=== PATIENT | female | born 1960 | race Caucasian/White ===

== ENCOUNTER 2016-08-20 10:14 | Emergency (ER) ==
[2016-08-20] MEDS ORDERED: DILAUDID IM ONE (11:03)
[2016-08-20] MEDS ORDERED: PHENERGAN IM ONE (11:04)
--- NOTE | 2016-08-20 11:08 | PROVIDER DOCUMENTATION ---
HPI-Abdominal Pain/GI Problem - General Chief Complaint: Abdominal Pain Stated Complaint: LOWER ABD PAIN Time Seen by Provider: 08/20/16 10:24 Source: patient Allergies/Adverse Reactions: Patient Allergies Allergy/AdvReac Type Severity Reaction Status Date / Time Sulfa (Sulfonamide Allergy Intermediate FATIGUE Verified 08/20/16 10:33 Antibiotics) [Sulfa(Sulfonamide Antibiotics)] ketorolac tromethamine * Allergy Mild ITCHING Verified 08/20/16 10:33 [From Toradol] aspirin AdvReac Mild NAUSEA Verified 08/20/16 10:33 Home Medications: Home Medication List Medication Instructions Recorded Confirmed Last Taken Type Clonazepam [Klonopin] 1 mg PO HS 12/04/15 08/20/16 08/19/16 History Losartan Potassium [Cozaar] 100 mg PO DAILY 02/04/16 08/20/16 08/20/16 History Carisoprodol [Soma] 350 mg PO QHS 08/20/16 08/20/16 08/19/16 History Hydrocodone/Acetaminophen [[place] 1 each PO Q4-6H PRN PRN 08/20/16 08/20/1608/19 History 10-325 Tablet] Hydrocodone/Acetaminophen [[place] 1 each PO Q4-6H PRN PRN #20 tablet 08/20/16 Unknown Rx 5-325 Tablet] - History of Present Illness-ABD Nature of Presenting Problems: patient is a 56 y/o F that presents to the ER with lower abdominal pain x 24 hours. Denies n/v/d. She also complain of generalized pain. She is in between pain clinics. Abdominal Pain Onset Location: reports: suprapubic, generalized abdomen Pain Radiation: reports: LLQ Quality of Pain: reports: aching Severity in ED: reports: mild Onset/Duration: reports: gradual, 24 hours ago Timing: reports: still present, constant Activities at Onset: reports: other (out of chronic pain meds) Exposure to sick contacts?: No Modifying Factors: improves with: nothing Associated Symptoms: reports: back/neck pain. denies: chest pain, diarrhea, dizziness, fever/chills, genitourinary problems, nausea, vomiting Similar Symptoms Previously?: Yes Recently seen or treated by another doctor?: No Review of Systems - Adult - REVIEW OF SYSTEMS - ADULT Constitutional: denies: chills, fever Eyes: reports: no symptoms reported Ears, Nose, Mouth & Throat: denies: ear pain, sinus problem, throat pain, throat swelling Cardiovascular: denies: chest pain, palpitations, syncope Respiratory: denies: cough, shortness of breath, wheezing Gastrointestinal: reports: abdominal pain. denies: diarrhea, nausea, vomiting Genitourinary: denies: dysuria, frequency, hematuria, urinary retention Musculoskeletal: reports: back pain. denies: joint pain, neck pain Integumentary: reports: no symptoms reported Neurological: reports: no symptoms reported Psychiatric: reports: no symptoms reported Endocrine: reports: no symptoms reported Hematologic/Lymphatic: reports: no symptoms reported Allergic/Immunologic: reports: no symptoms reported All Other Systems: Reviewed and Negative Past History - Adult - PAST MEDICAL HISTORY-ADULT Review of Records: reports: Old Records Reviewed, Nursing Assessment Review, Medications Reviewed Cardiovascular: reports: CHF, HTN, hyperlipidemia Musculoskeletal: reports: arthritis Psychiatric: reports: anxiety Endocrine/Immune: reports: Diabetes - PRIOR SURGERIES/PROCEDURES Surgical/Procedure History: reports: cholecystectomy, hysterectomy, BTL, orthopedic (extremity) (left leg), back/neck (prior back surg for disc herniation) - PRIOR HOSPITALIZATIONS Prior Hospitalizations: reports: for other non-related - IMMUNIZATION STATUS Childhood Immunizations: See Nurse Assessment Flu Vaccine: See Nurse Assessment - FAMILY HISTORY Family History: reviewed, not pertinent - SOCIAL HISTORY Smoking: quit greater than 1 year Living Situation: family Physical Exam-General - PHYSICAL EXAM-ADULT Initial Vital Signs Reviewed: Yes - CONSTITUTIONAL General Appearance: alert, no apparent distress - EYES Eyes: PERRL/EOMI, pink conjunctivae - HEAD, EARS, NOSE, MOUTH & THROAT HENMT: normocephalic/atraumatic, moist mucous membranes, normal ENT inspection - NECK Neck: non-tender, full range of motion, normal inspection - RESPIRATORY Respiratory: lungs clear, normal breath sounds, no respiratory distress, no accessory muscle use - CARDIOVASCULAR Cardiovascular: regular rate, rhythm, no gallop, no murmur - GASTROINTESTINAL (ABDOMEN) Abdominal Exam: normal bowel sounds, soft, no organomegaly, no pulsatile mass, tenderness (LLQ) - MUSCULOSKELETAL Back Exam: no CVA tenderness, no vertebral tenderness. negative: vertebral tenderness Extremity: normal range of motion, normal inspection, no pedal edema, no calf tenderness, normal capillary refill - SKIN Integumentary: normal color, warm/dry - NEUROLOGIC Neurologic: grossly normal, no motor/sensory deficits - PSYCHIATRIC Psych/Mental Status: normal mood/affect, normal thought content, normal thought process, oriented x 3 Progress - PLAN OF CARE/RESULTS Progress/Plan/Lab Results: plan of care-labs, meds Vital Signs Temp Pulse Resp BP Pulse Ox 08/20/16 10:19 97.6 F 85 20 180/91 100 Sulfa (Sulfonamide Antibiotics) [Sulfa(Sulfonamide Antibiotics)] Allergy ( Intermediate, Verified 08/20/16 10:33) FATIGUE ketorolac tromethamine * [From Toradol] Allergy (Mild, Verified 08/20/16 10:33) ITCHING aspirin Adverse Reaction (Mild, Verified 08/20/16 10:33) NAUSEA Clonazepam [Klonopin] 1 mg PO HS 12/04/15 Losartan Potassium [Cozaar] 100 mg PO DAILY 02/04/16 Carisoprodol [Soma] 350 mg PO QHS 08/20/16 Hydrocodone/Acetaminophen [[place] 10-325 Tablet] 1 each PO Q4-6H PRN PRN Hydrocodone/Acetaminophen [[place] 5-325 Tablet] 1 each PO Q4-6H PRN PRN #20 tablet 08/20/16 I&O 08/19/16 08/20/16 08/21/16 06:59 06:59 06:59 Output Total 20 Balance -20 Laboratory 08/20/16 08/20/16 11:17 11:17 WBC 8.62 RBC 4.48 Hgb 13.5 Hct 40.8 MCV 91.1 MCH 30.1 MCHC 33.1 RDW Std Deviation 12.9 Plt Count 397 MPV 9.4 Immature Gran % (Auto) 0.0 Neut % (Auto) 51.5 Lymph % (Auto) 38.2 [place] % (Auto) 7.1 Eos % (Auto) 2.7 Baso % (Auto) 0.5 Immature Gran # (Auto) 0.00 Neut # (Auto) 4.45 Lymph # (Auto) 3.29 [place] # (Auto) 0.61 H Eos # (Auto) 0.23 Baso # (Auto) 0.04 Urine Source CLEAN CATCH Urine Color YELLOW Urine Turbidity CLEAR Urine pH 6.0 Ur Specific [place] 1.018 Urine Protein NEGATIVE Ur Glucose (Stick) NEGATIVE Ur Ketones (Stick) NEGATIVE Urine Blood NEGATIVE Urine Nitrite NEGATIVE Urine Bilirubin NEGATIVE Urobilinogen Dipstick NORMAL Urine Leukocytes NEGATIVE Urine WBC (Auto) <10 Urine RBC (Auto) <10 U Epithel Cells (Auto) <10 Urine Bacteria (Auto) NEGATIVE Orders Category Date Time Status BMP [BASIC METABOLIC PANEL] [CHEM] Stat Lab 08/20/16 11:17 Received CBC WITH ELECTRONIC DIFF [HEME] Stat Lab 08/20/16 11:17 Completed URINALYSIS W/POSS RFLX CULT [URINALYSIS] Stat Lab 08/20/16 11:17 Completed Hydromorphone [Dilaudid] Med 08/20/16 11:03 Discontinued 2 mg IM NOW ONE Promethazine [Phenergan] Med 08/20/16 11:04 Discontinued 12.5 mg IM NOW ONE pt will be d/c home with rx, f/u with pcp, pt was clinically stable Departure - Departure Time of Disposition Order: 11:51 DIAGNOSIS: Back pain Qualifiers: Back pain location: low back pain Chronicity: chronic Back pain laterality: midline Sciatica presence: without sciatica Qualified Code(s): M54.5 - Low back pain; G89.29 - Other chronic pain Disposition: HOME 01 Certified Medical Emergency: Emergent Condition: Stable Additional Instructions: ED Follow Up Instructions: You have been treated by a care provider in the Emergency Department. These instructions are being provided to you so you can have an understanding of how to care for yourself upon discharge. Upon discharge from the Emergency Department, you are responsible for making arrangements for follow-up care by a physician of your choice. Take all prescribed medications as directed. Return to the Emergency Department immediately for any new or worsening symptoms. You may call the Physician Referral phone number at [phone] to obtain a list of Physicians who are taking new patients. Prescriptions: Hydrocodone/Acetaminophen [[place] 5-325 Tablet] 1 each PO Q4-6H PRN PRN #20 tablet PRN Reason: Pain Referrals: Shanae Villa MD [Primary Care Provider] - Call for Appoint. 1-2days Instructions: Back Exercises, Back Pain, Adult Attestation - Scribe Verification/Attestation Scribe:: Higinio Crane Acting as Scribe for:: Jeramie Moraes Scribe documention review:: This chart was documented by a scribe and accurately reflects the service the provider performed and the decisions made by the provider. Physician Attestation - Physician Attestation I, the provider, attest to the following statement:: Jeramie Moraes Physician documentation Attestation:: This documentation recorded by the scribe accurately reflects the service I personally performed and the decisions made by me.
[2016-08-20 11:28] LABS: MANUAL DIFF NEEDED? NO
[2016-08-20 11:34] LABS: BASO% 0.5 % (0.0-0.8); EOS# 0.23 X1000 (0.0-0.7); EOS% 2.7 % (0.0-10.0); HEMATOCRIT 40.8 % (37.0-47.0); HEMOGLOBIN 13.5 g/dL (12.0-16.0); LYMPH# 3.29 X1000 (1.2-3.4); LYMPH% 38.2 % (20.5-51.1); MCH 30.1 PG (27-31); MCHC 33.1 g/dL (33-37); MCV 91.1 FL (81-99); MONO# 0.61 X1000 (0.11-0.59); MONO% 7.1 % (1.7-9.3); MPV 9.4 FL (7.4-10.4); NEUT% 51.5 % (42.2-75.2); PLT 397 X1000 (130-400); RBC 4.48 XMIL (4.2-5.4)
[2016-08-20 11:37] LABS: URINE CULTURE NEEDED? NO; URINE MICRO REVIEW NEEDED? NO; URINE SOURCE CLEAN CATCH
[2016-08-20 11:41] LABS: UR EPITHELIAL CELLS <10 /HPF (<10); URINE BACTERIA NEGATIVE /HPF; URINE RBC <10 /HPF (<10); URINE WBC <10 /HPF (<10)
[2016-08-20 11:42] LABS: BILIRUBIN URINE NEGATIVE (NEGATIVE); BLOOD URINE NEGATIVE (NEGATIVE); COLOR YELLOW; GLUCOSE URINE NEGATIVE (NEGATIVE); LEUKOCYTES URINE NEGATIVE (NEGATIVE); NITRITE URINE NEGATIVE (NEGATIVE); PROTEIN URINE NEGATIVE (NEGATIVE); SP GRAVITY URINE 1.018; TURBIDITY URINE CLEAR (CLEAR); UROBILINOGEN URINE NORMAL (NORMAL)
[2016-08-20 12:05] VITALS: BP 152/78
[2016-08-20 12:16] LABS: AGAP 16; BUN 12 mg/dL (8-22); CALCIUM 9.2 mg/dL (8.8-10.2); CHLORIDE 99 mmol/L (98-107); COSMO 280; POTASSIUM 3.5 mmol/L (3.5-5.1); SODIUM 140 mmol/L (136-145); TCO2 25 mmol/L (25-35)
== END 2016-08-20 12:30 | disposition home or self-care (01) ==
LOC: ED 10:14
DX: M54.5 Low back pain (principal); G89.29 Other chronic pain; R10.32 Left lower quadrant pain; R10.84 Generalized abdominal pain; R10.9 Unspecified abdominal pain; R10.814 Left lower quadrant abdominal tenderness; I10 Essential (primary) hypertension; E78.5 Hyperlipidemia, unspecified; M19.90 Unspecified osteoarthritis, unspecified site; E11.9 Type 2 diabetes mellitus without complications; F41.9 Anxiety disorder, unspecified; Z79.899 Other long term (current) drug therapy; Z87.891 Personal history of nicotine dependence
CPT/HCPCS: 80048; 81001; 85025; J1170; J2550

== ENCOUNTER 2016-08-31 12:49 | Inpatient (IN) ==
--- NOTE | 2016-08-31 13:15 | ED EKG INTERP ---
EKG Interpretation - EKG Time of EKG reading by physician:: 12:51 EKG Read and Signed by:: Amaury Ly EKG Interpretation (*Must complete 3 of following elements*): Normal Rate: 81 Rhythm: normal sinus rhythm Comments: normal ECG Attestation - Scribe Verification/Attestation Scribe:: Charis Kilgore Acting as Scribe for:: Amaury Ly Scribe documention review:: This chart was documented by a scribe and accurately reflects the service the provider performed and the decisions made by the provider.
--- NOTE | 2016-08-31 15:37 | PROVIDER DOCUMENTATION ---
HPI-General Adult - General Chief Complaint: B/P Problems Stated Complaint: HIGH B/P Time Seen by Provider: 08/31/16 15:29 Source: patient, family Allergies/Adverse Reactions: Patient Allergies Allergy/AdvReac Type Severity Reaction Status Date / Time Sulfa (Sulfonamide Allergy Intermediate FATIGUE Verified 08/31/16 16:05 Antibiotics) [Sulfa(Sulfonamide Antibiotics)] ketorolac tromethamine * Allergy Mild ITCHING Verified 08/31/16 16:05 [From Toradol] aspirin AdvReac Mild NAUSEA Verified 08/31/16 16:05 Home Medications: Home Medication List Medication Instructions Recorded Confirmed Last Taken Type Clonazepam [Klonopin] 1 mg PO HS 12/04/15 08/31/16 08/31/16 History Losartan Potassium [Cozaar] 100 mg PO DAILY 02/04/16 08/31/16 08/31/16 History Carisoprodol [Soma] 350 mg PO QHS 08/20/16 08/31/16 08/19/16 History Hydrocodone/Acetaminophen [[place] 1 each PO Q4-6H PRN PRN 08/20/16 08/31/1608/19 History 10-325 Tablet] Hydrocodone/Acetaminophen [[place] 1 each PO Q4-6H PRN PRN #20 tablet 08/20/16 Unknown Rx 5-325 Tablet] Metformin [Glucophage] 500 mg PO BID CC 08/31/16 08/31/16 08/31/16 History PRAVAstatin [Pravachol] 40 mg PO DAILY 08/31/16 08/31/16 08/31/16 History - History of Present Illness -Gen Adult Nature of Presenting Problems: REPORTS HEADACHE SINCE SATURDAY. LEFT ANTERIOR CHEST PAIN INTERMITTENTLY SINCE SATURDAY. ELEVATED BLOOD PRESSURE FOR [address] FUNK ON SATURDAY AND ADDED CLONIDINE 0.1MG P.O. DAILY. HAS HAD MEDICATIONS TODAY. REPORTS HISTORY OF PAIN CLINIC FOR CHRONIC BACK AND SHOULDER PAIN. "DR. FUNK IS TRYING TO GET ME IN ANOTHER PAIN CLINIC. I HAVEN'T BEEN ON [place] IN A COUPLE OF MONTHS." ALSO, "SOMETIMES MY SHOULDER HURTS WHEN MY BACK HURTS THEN MY CHEST HURTS." Location of Pain/Injury: reports: head (FRONTAL HEADACHE FOR 2 WEEKS.), chest ( LEFT ANTERIOR AND SUBSTERNAL CHEST PAIN INTERMITTENLTY SINCE SATURDAY.) Pain Radiation: reports: no radiation, chest Quality of Pain: reports: aching Onset/Duration: reports: 2 days ago Timing: reports: still present, intermittent Context/Activities at Onset: reports: none Modifying Factors: improves with: nothing Associated Symptoms: reports: denies symptoms Similar Symptoms Previously?: No Recently seen or treated by another doctor?: Yes (SAW DR. FUNK ON SATURDAY) Review of Systems - Adult - REVIEW OF SYSTEMS - ADULT Constitutional: reports: see HPI Eyes: reports: no symptoms reported Ears, Nose, Mouth & Throat: reports: no symptoms reported Cardiovascular: reports: see HPI, chest pain Respiratory: reports: no symptoms reported Gastrointestinal: reports: no symptoms reported Genitourinary: reports: no symptoms reported Musculoskeletal: reports: no symptoms reported Integumentary: reports: no symptoms reported Neurological: reports: see HPI, headache/migraines Endocrine: reports: no symptoms reported Hematologic/Lymphatic: reports: no symptoms reported Allergic/Immunologic: reports: no symptoms reported All Other Systems: Reviewed and Negative Past History - Adult - PAST MEDICAL HISTORY-ADULT Review of Records: reports: Nursing Assessment Review, Medications Reviewed, Social history reviewed & non-contributory. Major Childhood Illnesses: reports: denies history Cardiovascular: reports: denies history, HTN, hyperlipidemia Respiratory: reports: denies history Gastrointestinal: reports: denies history, GERD Musculoskeletal: reports: arthritis Neurological: reports: denies history Psychiatric: reports: anxiety Endocrine/Immune: reports: Diabetes Other Conditions: reports: denies history - PRIOR SURGERIES/PROCEDURES Surgical/Procedure History: reports: cholecystectomy, hysterectomy, BTL, orthopedic (extremity) (left leg), back/neck (prior back surg for disc herniation) - PRIOR HOSPITALIZATIONS Prior Hospitalizations: reports: for other non-related - IMMUNIZATION STATUS Childhood Immunizations: See Nurse Assessment Flu Vaccine: See Nurse Assessment - FAMILY HISTORY Family History: reviewed, not pertinent - SOCIAL HISTORY Smoking: denies Substance Use: none/never Living Situation: family Physical Exam-General - PHYSICAL EXAM-ADULT Initial Vital Signs Reviewed: Yes - CONSTITUTIONAL General Appearance: mild distress - EYES Eyes: PERRL/EOMI, pink conjunctivae - HEAD, EARS, NOSE, MOUTH & THROAT HENMT: normocephalic/atraumatic, moist mucous membranes, maxillary tenderness ( TURBINATES ERYTHEMATOUS, YELLOW DISCHARGE BILATERAL NARES) - NECK Neck: non-tender, full range of motion, supple - RESPIRATORY Respiratory: chest non-tender, lungs clear, normal breath sounds - CARDIOVASCULAR Cardiovascular: normal peripheral pulses, regular rate, rhythm, no edema - GASTROINTESTINAL (ABDOMEN) Abdominal Exam: normal bowel sounds, non tender, soft - LYMPHATIC Lymphatic: no adenopathy - MUSCULOSKELETAL Back Exam: normal inspection Extremity: normal range of motion Peripheral Pulses: radial (R): 3+, radial (L): 3+ - SKIN Integumentary: normal color, normal turgor, warm/dry - NEUROLOGIC Neurologic: grossly normal, no motor/sensory deficits - PSYCHIATRIC Psych/Mental Status: normal mood/affect, normal thought content, normal thought process, oriented x 3 Progress - PLAN OF CARE/RESULTS Progress/Plan/Lab Results: Vital Signs Temp Pulse Resp BP Pulse Ox 08/31/16 16:20 210/120 08/31/16 12:51 97.7 F 93 H 18 232/111 99 Sulfa (Sulfonamide Antibiotics) [Sulfa(Sulfonamide Antibiotics)] Allergy ( Intermediate, Verified 08/31/16 16:05) FATIGUE ketorolac tromethamine * [From Toradol] Allergy (Mild, Verified 08/31/16 16:05) ITCHING aspirin Adverse Reaction (Mild, Verified 08/31/16 16:05) NAUSEA Clonazepam [Klonopin] 1 mg PO HS 12/04/15 Losartan Potassium [Cozaar] 100 mg PO DAILY 02/04/16 Carisoprodol [Soma] 350 mg PO QHS 08/20/16 Hydrocodone/Acetaminophen [[place] 10-325 Tablet] 1 each PO Q4-6H PRN PRN Hydrocodone/Acetaminophen [[place] 5-325 Tablet] 1 each PO Q4-6H PRN PRN #20 tablet 08/20/16 Metformin [Glucophage] 500 mg PO BID CC 08/31/16 PRAVAstatin [Pravachol] 40 mg PO DAILY 08/31/16 I&O 08/30/16 08/31/16 09/01/16 06:59 06:59 06:59 Output Total 50 Balance -50 Laboratory 08/31/16 08/31/16 08/31/16 Unknown 13:00 13:00 WBC 9.44 RBC 4.31 Hgb 13.4 Hct 39.5 MCV 91.6 MCH 31.1 H MCHC 33.9 RDW Std Deviation 12.7 Plt Count 385 MPV 10.0 Immature Gran % (Auto) 0.0 Neut % (Auto) 54.3 Lymph % (Auto) 35.8 [place] % (Auto) 7.4 Eos % (Auto) 2.3 Baso % (Auto) 0.2 Immature Gran # (Auto) 0.00 Neut # (Auto) 5.12 Lymph # (Auto) 3.38 [place] # (Auto) 0.70 H Eos # (Auto) 0.22 Baso # (Auto) 0.02 PTT (Actin FS) Sodium 142 Potassium 3.5 Chloride 102 Carbon Dioxide 25 Anion Gap 15 BUN 13 Creatinine 1.0 H Estimated GFR/1.73 m2 58 BUN/Creatinine Ratio 13 Glucose 116 H Calculated Osmolality 284 Calcium 9.4 Total Bilirubin 0.27 AST 16 ALT 17 Alkaline Phosphatase 117 H Troponin T Total Protein 7.2 Albumin 4.4 Globulin 2.8 Albumin/Globulin Ratio 1.6 Urine Source CLEAN CATCH Urine Color YELLOW Urine Turbidity CLEAR Urine pH 5.5 Ur Specific [place] 1.017 Urine Protein NEGATIVE Ur Glucose (Stick) NEGATIVE Ur Ketones (Stick) NEGATIVE Urine Blood NEGATIVE Urine Nitrite NEGATIVE Urine Bilirubin NEGATIVE Urobilinogen Dipstick NORMAL Urine Leukocytes NEGATIVE Urine WBC (Auto) <10 Urine RBC (Auto) <10 U Epithel Cells (Auto) <10 Urine Bacteria (Auto) NEGATIVE 08/31/16 08/31/16 13:00 13:00 WBC RBC Hgb Hct MCV MCH MCHC RDW Std Deviation Plt Count MPV Immature Gran % (Auto) Neut % (Auto) Lymph % (Auto) [place] % (Auto) Eos % (Auto) Baso % (Auto) Immature Gran # (Auto) Neut # (Auto) Lymph # (Auto) [place] # (Auto) Eos # (Auto) Baso # (Auto) PTT (Actin FS) 27.1 Sodium Potassium Chloride Carbon Dioxide Anion Gap BUN Creatinine Estimated GFR/1.73 m2 BUN/Creatinine Ratio Glucose Calculated Osmolality Calcium Total Bilirubin AST ALT Alkaline Phosphatase Troponin T < 0.010 Total Protein Albumin Globulin Albumin/Globulin Ratio Urine Source Urine Color Urine Turbidity Urine pH Ur Specific [place] Urine Protein Ur Glucose (Stick) Ur Ketones (Stick) Urine Blood Urine Nitrite Urine Bilirubin Urobilinogen Dipstick Urine Leukocytes Urine WBC (Auto) Urine RBC (Auto) U Epithel Cells (Auto) Urine Bacteria (Auto) Laboratory Tests 08/31/16 08/31/16 08/31/16 13:00 13:00 13:00 WBC 9.44 RBC 4.31 Hgb 13.4 Hct 39.5 MCV 91.6 MCH 31.1 H MCHC 33.9 RDW Std Deviation 12.7 Plt Count 385 MPV 10.0 Immature Gran % (Auto) 0.0 Neut % (Auto) 54.3 Lymph % (Auto) 35.8 [place] % (Auto) 7.4 Eos % (Auto) 2.3 Baso % (Auto) 0.2 Immature Gran # (Auto) 0.00 Neut # (Auto) 5.12 Lymph # (Auto) 3.38 [place] # (Auto) 0.70 H Eos # (Auto) 0.22 Baso # (Auto) 0.02 PTT (Actin FS) 27.1 Sodium Potassium Chloride Carbon Dioxide Anion Gap BUN Creatinine Estimated GFR/1.73 m2 BUN/Creatinine Ratio Glucose Calculated Osmolality Calcium Total Bilirubin AST ALT Alkaline Phosphatase Troponin T < 0.010 Total Protein Albumin Globulin Albumin/Globulin Ratio Urine Source Urine Color Urine Turbidity Urine pH Ur Specific [place] Urine Protein Ur Glucose (Stick) Ur Ketones (Stick) Urine Blood Urine Nitrite Urine Bilirubin Urobilinogen Dipstick Urine Leukocytes Urine WBC (Auto) Urine RBC (Auto) U Epithel Cells (Auto) Urine Bacteria (Auto) 08/31/16 08/31/16 13:00 Unknown WBC RBC Hgb Hct MCV MCH MCHC RDW Std Deviation Plt Count MPV Immature Gran % (Auto) Neut % (Auto) Lymph % (Auto) [place] % (Auto) Eos % (Auto) Baso % (Auto) Immature Gran # (Auto) Neut # (Auto) Lymph # (Auto) [place] # (Auto) Eos # (Auto) Baso # (Auto) PTT (Actin FS) Sodium 142 Potassium 3.5 Chloride 102 Carbon Dioxide 25 Anion Gap 15 BUN 13 Creatinine 1.0 H Estimated GFR/1.73 m2 58 BUN/Creatinine Ratio 13 Glucose 116 H Calculated Osmolality 284 Calcium 9.4 Total Bilirubin 0.27 AST 16 ALT 17 Alkaline Phosphatase 117 H Troponin T Total Protein 7.2 Albumin 4.4 Globulin 2.8 Albumin/Globulin Ratio 1.6 Urine Source CLEAN CATCH Urine Color YELLOW Urine Turbidity CLEAR Urine pH 5.5 Ur Specific [place] 1.017 Urine Protein NEGATIVE Ur Glucose (Stick) NEGATIVE Ur Ketones (Stick) NEGATIVE Urine Blood NEGATIVE Urine Nitrite NEGATIVE Urine Bilirubin NEGATIVE Urobilinogen Dipstick NORMAL Urine Leukocytes NEGATIVE Urine WBC (Auto) <10 Urine RBC (Auto) <10 U Epithel Cells (Auto) <10 Urine Bacteria (Auto) NEGATIVE Orders Category Date Time Status Admit Patient To Observation Status Routine AdmDCTranf 08/31/16 17:06 Ordered Call Admitting on Arrival AT ADMISSION Care 08/31/16 17:09 Active Cardiac Monitoring DIRECTED Care 08/31/16 15:48 Active ED: Urine Bedside ORDERED Care 08/31/16 15:45 Active Monitor Blood Pressure ORDERED Care 08/31/16 15:48 Active Nursing [SLED Misc. NRSG Orders] DIRECTED Care 08/31/16 15:47 Active Saline Loc NOW Care 08/31/16 15:43 Active CHEST-1 VIEW [RAD] Stat Exams 08/31/16 15:42 Taken HEAD W/O CONTRAST [CT] Stat Exams 08/31/16 15:46 Completed CBC WITH ELECTRONIC DIFF [HEME] Stat Lab 08/31/16 13:00 Completed CMP [COMPREHENSIVE METABOLIC PANEL] [CHEM] Stat Lab 08/31/16 13:00 Completed PTT [COAG] Stat Lab 08/31/16 13:00 Completed TROPONIN T Stat Lab 08/31/16 13:00 Completed URINALYSIS W/POSS RFLX CULT [URINALYSIS] Stat Lab 08/31/16 Completed Aspirin Med 08/31/16 16:20 Discontinued 325 mg PO NOW ONE Clonidine [Catapres] Med 08/31/16 15:49 Discontinued 0.1 mg PO NOW ONE Morphine Med 08/31/16 16:26 Discontinued See Dose Instructions IV NOW ONE Ondansetron [Zofran] Med 08/31/16 16:48 Discontinued 4 mg .ROUTE .STK-MED ONE Ondansetron [Zofran] Med 08/31/16 16:47 Discontinued 4 mg IV NOW ONE Telemetry [OM.EQ] Routine Oth 08/31/16 17:09 Active pulse ox [Oximetry Spotcheck] Urgent Oth 08/31/16 15:48 Active Transfer/Admit Order [TRANSFER] Routine Transfer 08/31/16 17:09 Ordered DISCUSSED HISTORY, PRESENTATION AND FINDINGS WITH DR. TUCKER WHO AGREES WITH PLAN TO ADMIT. DISCUSSED HISTORY, PRESENTATION WITH DR. FUNK AND WILL ADMIT TO OBSERVATION. PATIENT AND FAMILY AGREE WITH PLAN OF CARE. NO HEADACHE AFTER MORPHINE IV AND CHEST PAIN HAS IMPROVED. NTG NOT GIVEN DUE TO HEADACHE--DR. FUNK AWARE. - XRAY 1 XRAY Study: Chest Impression: Normal - CT/MRI 1 CT Study: Head Impression: Normal Departure - Departure Time of Disposition Order: 17:12 DIAGNOSIS: Headache Qualifiers: Headache type: unspecified Headache chronicity pattern: acute headache Intractability: not intractable Qualified Code(s): R51 - Headache Hypertension Qualifiers: Hypertension type: essential hypertension Qualified Code(s): I10 - Essential ( primary) hypertension Sinusitis Qualifiers: Sinusitis location: maxillary Chronicity: acute Recurrence: not specified as recurrent Qualified Code(s): J01.00 - Acute maxillary sinusitis, unspecified Chest pain Qualifiers: Chest pain type: other chest pain Qualified Code(s): R07.89 - Other chest pain Disposition: ADMITTED INPATIENT 09 Certified Medical Emergency: Emergent Condition: Stable Referrals: Shanae Funk MD [Primary Care Provider] - Instructions: Migraine Headache, [id number]
[2016-08-31] MEDS ORDERED: CATAPRES PO ONE (15:49)
[2016-08-31 16:01] LABS: MANUAL DIFF NEEDED? NO
[2016-08-31 16:02] LABS: BASO% 0.2 % (0.0-0.8); EOS# 0.22 X1000 (0.0-0.7); EOS% 2.3 % (0.0-10.0); HEMATOCRIT 39.5 % (37.0-47.0); HEMOGLOBIN 13.4 g/dL (12.0-16.0); LYMPH# 3.38 X1000 (1.2-3.4); LYMPH% 35.8 % (20.5-51.1); MCH 31.1 PG (27-31); MCHC 33.9 g/dL (33-37); MCV 91.6 FL (81-99); MONO% 7.4 % (1.7-9.3); NEUT% 54.3 % (42.2-75.2); PLT 385 X1000 (130-400); RBC 4.31 XMIL (4.2-5.4)
[2016-08-31 16:06] LABS: URINE CULTURE NEEDED? NO; URINE MICRO REVIEW NEEDED? NO; URINE SOURCE CLEAN CATCH
[2016-08-31 16:11] LABS: BILIRUBIN URINE NEGATIVE (NEGATIVE); BLOOD URINE NEGATIVE (NEGATIVE); COLOR YELLOW; GLUCOSE URINE NEGATIVE (NEGATIVE); LEUKOCYTES URINE NEGATIVE (NEGATIVE); NITRITE URINE NEGATIVE (NEGATIVE); PH URINE 5.5; PROTEIN URINE NEGATIVE (NEGATIVE); SP GRAVITY URINE 1.017; TURBIDITY URINE CLEAR (CLEAR); UROBILINOGEN URINE NORMAL (NORMAL)
[2016-08-31 16:12] LABS: UR EPITHELIAL CELLS <10 /HPF (<10); URINE BACTERIA NEGATIVE /HPF; URINE RBC <10 /HPF (<10); URINE WBC <10 /HPF (<10)
[2016-08-31 16:18] LABS: ALBUMIN 4.4 g/dL (3.5-5.0); CALCIUM 9.4 mg/dL (8.8-10.2); POTASSIUM 3.5 mmol/L (3.5-5.1); TOTAL BILIRUBIN 0.27 mg/dL (0.20-1.00); TOTAL PROTEIN 7.2 g/dL (6.3-8.3)
[2016-08-31] MEDS ORDERED: ASPIRIN PO ONE (16:20)
[2016-08-31] MEDS ORDERED: MORPHINE IV ONE ×2 (16:26→17:17)
--- NOTE | 2016-08-31 16:30 | Diag Imaging Result Document ---
PROCEDURE NAME: HEAD W/O CONTRAST - 08/31/2016 CT OF THE HEAD WITHOUT CONTRAST: FINDINGS: There is no evidence of mass effect, bleed, or abnormal extra-axial fluid collection. There are lacunae present in both basal ganglia. There are no previous studies available for comparison. IMPRESSION: Chronic microvascular changes. No evidence of acute disease.
[2016-08-31] MEDS ORDERED: ZOFRAN IV ONE ×2 (16:47→17:18)
[2016-08-31] MEDS ORDERED: ZOFRAN ONE (16:48)
--- NOTE | 2016-08-31 16:59 | Diag Imaging Result Document ---
PROCEDURE NAME: CHEST-1 VIEW - 08/31/2016 PORTABLE CHEST: TIME: 1555 hours FINDINGS: The inspiration is suboptimal. There is a granuloma in the right costophrenic angle. There has been no significant change since 06/27/2016. IMPRESSION: Poor inspiration.
[2016-08-31] MEDS ORDERED: APRESOLINE IV PRN (19:28)
[2016-08-31] MEDS ORDERED: ASPIRIN PO STA (19:28)
--- NOTE | 2016-08-31 21:38 | HISTORY AND PHYSICAL ---
CHIEF COMPLAINT: Elevated blood pressure, headache, intermittent chest pain this afternoon. HISTORY OF PRESENT ILLNESS: She is a 56-year-old, white female, who was seen in the emergency room with the above symptoms. Patient was seen in my office on 08/29/2016 for uncontrolled blood pressure. She is noncompliant. Treatment was optimized and she failed to improve, came to the emergency room. In the ER chest x-ray was negative, head CT was negative, and EKG is unremarkable. She has been admitted to the hospital for rule out ND, control the blood pressure and currently stable. She denies any shortness of breath, PND, orthopnea or dizziness, nausea, vomiting, swelling of feet. PAST MEDICAL HISTORY: Chronic anxiety, hypertension, glucose intolerance, metabolic syndrome, chronic lower back pain. PAST SURGICAL HISTORY: Bilateral cataract surgery, cholecystectomy, hysterectomy, back surgery, lipoma of left leg excision. MEDICINES IN MY OFFICE: Klonopin 0.5 mg once daily, losartan 100 mg daily, metformin 500 mg 2 in the morning 1 in the evening, Norvasc 10 mg daily, trazodone 50 mg at bedtime. ALLERGIES: Not known. SOCIAL HISTORY: , 3 kids, living in [place]. No smoking. No alcohol. Disabled. FAMILY HISTORY: Father of COPD at the age of 50. Mother of heart attack at the age of 58. Brothers had CVA. HEALTH MAINTENANCE: She is not up-to-date on vaccinations. REVIEW OF SYSTEMS: HEENT: Headache. No vision problem. No earache. No sore throat. Neck: No goiter. No lymphadenopathy. No bruit. Cardiopulmonary: Chest pain, atypical. No shortness of breath, PND, orthopnea. GI: No nausea, vomiting, abdominal pain. : No history of hesitancy or frequency. No swelling of feet. No joint pains. Neurologic: No obvious focal symptoms or weakness or seizures. PHYSICAL EXAMINATION: VITAL SIGNS: On examination blood pressure is high. Height 5 feet 3 inches, 171 pounds. Slightly tachycardic. HEENT: Atraumatic, normocephalic. Pupils equal, reactive to light. No papilledema noted. TMs are normal. Nose and throat within normal limits. NECK: JVD is not elevated. CHEST: Bilateral air entry. HEART: Sounds are regular. No murmur. ABDOMEN: Belly is soft, obese, nontender. Good bowel sounds. No masses palpable. No peripheral edema, cyanosis or clubbing. NEUROLOGIC: No obvious focal deficits. INVESTIGATIONS: CBC: White cell count 9.4, hematocrit 39, platelets 385,000. SMA 7 is normal. Creatinine 1.0, glucose 116. Liver function tests normal. Urinalysis is clear. CT head chronic microvascular ischemic changes. No evidence of acute disease. Chest x-ray poor inspiration. No significant change from 06/27/2016. EKG normal sinus, nothing acute. ASSESSMENT AND PLAN: A 56-year-old, white female, admitted to the hospital with uncontrolled hypertension associated with headache and chest pain, history of noncompliance. 1. Chest pain. Rule out myocardial infarction. Serial cardiac enzymes. Get an echocardiography. 2. Type 2 diabetes. Check the A1c. Currently on metformin. 3. Deep vein thrombosis and gastrointestinal prophylaxis with Lovenox and Protonix. 4. Hypertension currently on Cozaar. We will also add Norvasc 10 mg once a day and hydralazine as needed. 5. Chronic anxiety. On Klonopin. 6. Chronic back pain. Taking Soma. 7. Once the blood pressure is controlled, we will also need a stress test to rule out ischemic heart disease in light of risk factors and family history. If not able to control the blood pressure, look for secondary causes. 8. We will follow up on the clinical course. cc: Josh Villa MD
[2016-08-31] MEDS: SOMA PO SCH (21:54)
[2016-08-31] MEDS: SODIUM CHLORIDE 0.9% INJ SCH (21:54)
[2016-08-31] MEDS: KLONOPIN PO SCH (21:54)
[2016-08-31] MEDS: PROTONIX IV SCH (21:55)
[2016-08-31] MEDS: LOVENOX SUBQ SCH (21:55)
[2016-08-31] MEDS: HUMULIN R SUBQ SCH (22:02)
[2016-09-01] MEDS: HUMULIN R SUBQ SCH ×3 (07:00→17:45)
[2016-09-01] MEDS: NORVASC PO SCH (09:35)
[2016-09-01] MEDS: PRAVACHOL PO SCH (09:35)
[2016-09-01] MEDS: COZAAR PO SCH (09:35)
[2016-09-01] MEDS: GLUCOPHAGE PO SCH ×2 (09:35→17:45)
[2016-09-01] MEDS: TYLENOL PO PRN (17:45)
[2016-09-01] MEDS ORDERED: TYLENOL ONE (17:46)
[2016-09-01 17:58] LABS: HEMATOCRIT 36.7 % (37.0-47.0); MCH 30.3 PG (27-31); MCHC 32.7 g/dL (33-37); MCV 92.7 FL (81-99); MPV 9.8 FL (7.4-10.4); RBC 3.96 XMIL (4.2-5.4)
[2016-09-01 18:42] LABS: AGAP 17; BUN 14 mg/dL (8-22); CHLORIDE 100 mmol/L (98-107); COSMO 282; POTASSIUM 3.6 mmol/L (3.5-5.1); SODIUM 141 mmol/L (136-145); TCO2 24 mmol/L (25-35)
--- NOTE | 2016-09-01 21:33 | EKG Report ---
Test Performed on : 09/01/2016 07:21:11 AM Test Reason : cp Blood Pressure : / mmHG Vent. Rate : 060 BPM Atrial Rate : 060 BPM P-R Int : 182 ms QRS Dur : 078 ms QT Int : 496 ms P-R-T Axes : 043 061 094 degrees QTc Int : 496 ms Normal sinus rhythm. Prolonged QT Abnormal ECG When compared with ECG of 31-AUG-2016 12:51, (Unconfirmed) QT has lengthened Confirmed by Renetta STEELE, Simon De Los Santos ([id number]) on 09/02/2016 12:55:01 PM
[2016-09-02] MEDS: KLONOPIN PO SCH ×2 (01:11→22:31)
[2016-09-02] MEDS: LOVENOX SUBQ SCH ×2 (01:11→22:31)
[2016-09-02] MEDS: PROTONIX IV SCH ×2 (01:11→22:31)
[2016-09-02] MEDS: SODIUM CHLORIDE 0.9% INJ SCH ×2 (01:11→22:31)
[2016-09-02] MEDS: HUMULIN R SUBQ SCH ×5 (01:13→22:31)
[2016-09-02] MEDS: SOMA PO SCH ×2 (01:17→22:31)
[2016-09-02] MEDS: TYLENOL PO PRN (01:19)
[2016-09-02] MEDS: GLUCOPHAGE PO SCH ×2 (08:59→18:14)
[2016-09-02] MEDS: PRAVACHOL PO SCH (08:59)
[2016-09-02] MEDS: NORVASC PO SCH (08:59)
[2016-09-02] MEDS: COZAAR PO SCH (08:59)
--- NOTE | 2016-09-02 14:36 | PROGRESS NOTE ---
DATE: 09/02/2016 SUBJECTIVE: No chest pain. Blood pressure is coming down. No headache and no shortness of breath, PND, orthopnea. REVIEW OF SYSTEMS: Normal. Past medical history, past surgical history, medicines are reviewed. EXAMINATION: Vital Signs: Stable, 97.5, blood pressure is 138/69, room air 98%. HEENT: Atraumatic, normocephalic. Pupils equal, react to light. TMs are normal. Nose and throat within normal limits. Neck: Supple. No lymphadenopathy. No goiter. Chest: Clear to auscultation. Heart: Sounds are regular, no murmur. Belly: Soft, nontender. Good bowel sounds. No masses palpable. Neurologic: Nonfocal. INVESTIGATIONS: CBC is normal. SMA 7 is normal. Creatinine 1.0. A1c 6.0. Cardiac enzymes are normal. Urinalysis is clear. ASSESSMENT AND PLAN: 1. Hypertension now he is well controlled on amlodipine 10 mg daily, losartan 100 mg daily. 2. Hyperlipidemia on pravastatin. 3. Deep vein thrombosis, gastrointestinal prophylaxis with Lovenox and Protonix respectively. 4. Chronic anxiety on Klonopin. 5. Chest pain. Baseline EKG is normal. Ruled out for serial cardiac enzymes for myocardial infarction. Waiting for an echocardiogram and a stress test. If results are normal he will be discharged and will follow up. cc: Josh Villa MD
[2016-09-02] MEDS: MIRALAX PO SCH (15:17)
[2016-09-02] MEDS: MUCINEX PO SCH ×2 (15:17→22:31)
[2016-09-03] MEDS: HUMULIN R SUBQ SCH ×3 (06:12→18:01)
[2016-09-03] MEDS ORDERED: LEXISCAN ONE (08:08)
[2016-09-03] MEDS: NORVASC PO SCH (09:55)
[2016-09-03] MEDS: PRAVACHOL PO SCH (09:55)
[2016-09-03] MEDS: COZAAR PO SCH (09:55)
[2016-09-03] MEDS: GLUCOPHAGE PO SCH ×2 (09:55→18:07)
[2016-09-03] MEDS: MUCINEX PO SCH (09:55)
[2016-09-03] MEDS: TYLENOL PO PRN (09:55)
[2016-09-03] MEDS: MIRALAX PO SCH (09:56)
--- NOTE | 2016-09-03 13:40 | Diag Imaging Result Document ---
PROCEDURE NAME: MYOCARDIAL PERF SCAN, STR/REST - 09/03/2016 INDICATIONS: Chest pain. PROCEDURES PERFORMED: 1. One-day stress rest myocardial perfusion imaging. 2. Lexiscan stress. PROCEDURE IN DETAIL: Ms. Elizalde was brought to the nuclear laboratory and had a resting study with injection of 12.9 mCi of technetium-99m sestamibi to usual imaging protocol utilized. Subsequently, she was brought back and had a Lexiscan stress. At peak stress, was injected with 35.8 mCi of technetium-99m sestamibi with the usual imaging protocol utilized. FINDINGS: LEXISCAN STRESS RESULTS: 1. Baseline EKG shows sinus rhythm. 2. No evidence of ischemic related EKG changes or significant arrhythmias occurred during the course of the study. PERFUSION IMAGING RESULTS: 1. No evidence of abnormal extracardiac uptake. 2. TID ratio is normal at 1. 3. Perfusion imaging shows normal homogeneous uptake of radiotracer throughout the myocardial segments. 4. Normal ejection fraction of 74%. End-diastolic volume of 59, end-systolic volume of 15. Normal wall motion. cc: MD Josh Lyles MD
[2016-09-03 17:32] VITALS: BP 139/77
--- NOTE | 2016-09-03 21:10 | DISCHARGE SUMMARY ---
ADMISSION DATE: 09/03/2016 DISCHARGE DATE: 09/03/2016 DISCHARGING DIAGNOSES: 1. Atypical chest pain. 2. Intractable headache due to hypertension. 3. Chronic anxiety. 4. Type 2 diabetes. 5. Metabolic syndrome. 6. Chronic insomnia. PROCEDURES: 1. Nuclear perfusion scan is negative for reversible defects. 2. Echocardiography results are pending. BRIEF HISTORY: Please see the H and P that was done on 08/31/2016. In brief, she is a 56-year-old, white female, who came to the emergency room with chest pain, elevated blood pressure, headache. Blood pressure was 200 x 100. Prior to the admission, ER workup was negative. CT head was negative. Chest x-ray was stable. HOSPITAL COURSE: 1. Chest pain: Patient was ruled out for CT by serial cardiac enzymes. EKG is unremarkable. Once the blood pressure was under control patient had a stress test done and Dr. Elizalde reported no evidence of reversible defects. 2. Type 2 diabetes. Well controlled on metformin. 3. Hypertension. Optimize treatment by Cozaar and Norvasc. 4. Chronic anxiety on Klonopin. 5. Chronic back pain. Discontinue Soma. We will use only Flexeril as needed. 6. At the time of discharge blood pressure is controlled. LABORATORIES: CBC: White cell count 7.8, hematocrit 36, platelets 330,000, SMA 7, sodium 140, potassium 3.6, chloride 100, BUN 14, creatinine 1.0, glucose 104, A1c 6.0, calcium 9.0, AST and ALT normal. CK was normal. Cardiac enzymes were normal. Urinalysis is clear. RADIOLOGY: Myocardial perfusion scan is negative for reversible ischemia. CT head is negative. Chest x-ray was stable. DISCHARGE INSTRUCTIONS: 1. Aspirin 81 mg daily. 2. Klonopin 0.5 mg at bedtime. 3. Cozaar 100 daily. 4. Metformin 500 p.o. b.i.d. 5. Pravachol 40 daily. 6. Flexeril 10 daily. 7. Amlodipine 10 daily. 8. Follow up maintenance care for hypertension, diabetes, hyperlipidemia in my office in 2 weeks. cc: MD Josh Lyles MD
--- NOTE | 2016-09-04 07:12 | ECHO REPORT ---
ORDER DATE: 09/01/2016 INTERPRETING PHYSICIAN: Dr. Silva REQUESTING PHYSICIAN: Dr. Villa CLINICAL INDICATIONS: Chest pain. M-MODE MEASUREMENTS: Right ventricle: 2.6 cm. Left ventricle end diastole: 4.4 cm. Left ventricle end systole: 2.7 cm. Posterior wall: 1.0 cm. Interventricular septum: 1.0 cm. Left atrium: 3.7 cm. Aortic root: 2.5 cm. SUMMARY OF 2-DIMENSIONAL IMAGIN. The left ventricular chamber is not dilated. Left ventricular systolic function is normal. Ejection fraction is estimated at 57%. No wall motion abnormality is noted. 2. Right ventricle appears to be normal. 3. The atria appear to be normal. 4. The aortic valve is normal. Color flow mapping is unremarkable. 5. The mitral valve looks normal. Color flow mapping is unremarkable. 6. Tricuspid valve looks normal. Color flow mapping indicates trace regurgitation. 7. The inferior vena cava is not dilated. 8. The pulmonic valve looks normal. Color flow mapping indicates mild degree of regurgitation. 9. The mitral valve shows normal opening of the leaflets. Color flow mapping is unremarkable. 10.Pulse wave Doppler of mitral inflow is normal. 11.Tissue Doppler of septal and lateral mitral annulus is normal. 12.There is no diastolic dysfunction. 13.There is no pulmonary hypertension. 14.Tricuspid valve is unremarkable. 15.Aortic valve is also unremarkable. CONCLUSIONS: 1. Normal left and right ventricular function. 2. No diastolic dysfunction. 3. No pulmonary hypertension. 4. Normal valvular structures. Clinical correlation is recommended. cc: MD Josh Alexander MD
--- NOTE | 2016-09-05 05:51 | EKG Report ---
Test Performed on : 08/31/2016 12:51:19 PM Test Reason : No ORder in [facility] Blood Pressure : / mmHG Vent. Rate : 081 BPM Atrial Rate : 081 BPM P-R Int : 164 ms QRS Dur : 082 ms QT Int : 378 ms P-R-T Axes : 058 065 084 degrees QTc Int : 439 ms Normal sinus rhythm. Normal ECG When compared with ECG of 27-JUN-2016 19:27, No significant change was found Unconfirmed Result
== END 2016-09-03 19:14 | disposition home or self-care (01) ==
LOC: ED 12:49 → 3N 17:57
PROVIDERS: ADMIT Internal Medicine; ATTEND Internal Medicine

== ENCOUNTER 2017-01-12 10:38 | Observation (INO) ==
--- NOTE | 2017-01-12 11:27 | PROVIDER DOCUMENTATION ---
HPI-Chest Pain - General Chief Complaint: Cold Symptoms Stated Complaint: FEVER Time Seen by Provider: 01/12/17 11:07 Source: patient Allergies/Adverse Reactions: Patient Allergies Allergy/AdvReac Type Severity Reaction Status Date / Time Sulfa (Sulfonamide Allergy Intermediate FATIGUE Verified 01/12/17 10:59 Antibiotics) [Sulfa(Sulfonamide Antibiotics)] ketorolac tromethamine * Allergy Mild ITCHING Verified 01/12/17 10:59 [From Toradol] aspirin AdvReac Mild NAUSEA Verified 01/12/17 10:59 Home Medications: Home Medication List Medication Instructions Recorded Confirmed Last Taken Type Losartan Potassium [Cozaar] 100 mg PO QAM 02/04/16 01/12/17 01/12/17 History Amlodipine [Norvasc] 10 mg PO DAILY #30 tablet 09/03/16 01/12/17 01/12/17 Rx Metoprolol [Lopressor] 25 mg PO QAM 10/10/16 01/12/17 01/12/17 History Clonazepam 0.5 mg PO DAILY 10/13/16 01/12/17 01/12/17 History Ibuprofen [Motrin] 400 mg PO Q6H PRN PRN #20 tablet 12/11/16 01/12/17 01/12/17 Rx Trazodone [Desyrel] 100 mg PO QHS 12/11/16 01/12/17 1 Day Ago History Omeprazole [Omeprazole] 40 mg PO QAM 01/12/17 01/12/17 01/12/17 History Metformin [Glucophage] 500 mg PO BID CC #60 tablet 01/13/17 Unknown Rx PRAVAstatin [Pravachol] 40 mg PO QHS #30 tablet 01/13/17 Unknown Rx - History of Present Illness-CP Nature of Presenting Problem: Pt is a 56 y/o F c chief complaint chest pain and shortness of breath x 3-5 days. Pt has a h/o c htn, hld. Pt describes her chest as aching in nature and made worse on deep inspiration. On arrival, pt is in moderate distress. Review of Systems - Adult - REVIEW OF SYSTEMS - ADULT Constitutional: reports: no symptoms reported. denies: chills, fatique Eyes: reports: no symptoms reported. denies: blurred vision, double vision Ears, Nose, Mouth & Throat: reports: no symptoms reported. denies: ear pain, nose pain, throat pain Cardiovascular: reports: see HPI, chest pain Respiratory: reports: see HPI, shortness of breath Gastrointestinal: reports: no symptoms reported. denies: abdominal pain, nausea Genitourinary: reports: no symptoms reported. denies: dysuria, frequent UTI's, hematuria Musculoskeletal: reports: no symptoms reported. denies: joint pain, joint swelling Integumentary: reports: no symptoms reported. denies: itching, rash Neurological: reports: no symptoms reported. denies: numbness, paresthesia Psychiatric: reports: no symptoms reported. denies: anxiety, emotional problems Endocrine: reports: no symptoms reported. denies: cold intolerance, heat intolerance Hematologic/Lymphatic: reports: no symptoms reported. denies: blood clots, low blood count Allergic/Immunologic: reports: no symptoms reported. denies: allergic reactions , frequent infections All Other Systems: Reviewed and Negative Past History - Adult - PAST MEDICAL HISTORY-ADULT Review of Records: reports: Old Records Reviewed, Nursing Assessment Review, Medications Reviewed, Social history reviewed & non-contributory. Major Childhood Illnesses: reports: denies history Cardiovascular: reports: HTN, hyperlipidemia. denies: blood clots Respiratory: reports: denies history Gastrointestinal: reports: denies history, GERD Obstetrical/Gynecological: reports: denies history Genitourinary: reports: denies history Musculoskeletal: reports: arthritis Neurological: reports: denies history Psychiatric: reports: anxiety Endocrine/Immune: reports: Diabetes Other Conditions: reports: denies history - PRIOR SURGERIES/PROCEDURES Surgical/Procedure History: reports: cholecystectomy, hysterectomy, BTL, orthopedic (extremity) (left leg), back/neck (prior back surg for disc herniation) - PRIOR HOSPITALIZATIONS Prior Hospitalizations: reports: for other non-related - IMMUNIZATION STATUS Childhood Immunizations: See Nurse Assessment Flu Vaccine: See Nurse Assessment - FAMILY HISTORY Family History: reviewed, not pertinent Physical Exam-General - PHYSICAL EXAM-ADULT Initial Vital Signs Reviewed: Yes - CONSTITUTIONAL General Appearance: alert, no apparent distress - EYES Eyes: PERRL/EOMI, pink conjunctivae - HEAD, EARS, NOSE, MOUTH & THROAT HENMT: normocephalic/atraumatic, moist mucous membranes, normal ENT inspection - NECK Neck: normal inspection - RESPIRATORY Respiratory: chest non-tender, lungs clear, normal breath sounds - CARDIOVASCULAR Cardiovascular: normal peripheral pulses, regular rate, rhythm - GASTROINTESTINAL (ABDOMEN) Abdominal Exam: normal bowel sounds, non tender, soft - LYMPHATIC Lymphatic: no adenopathy - MUSCULOSKELETAL Back Exam: normal inspection, no CVA tenderness, no vertebral tenderness Extremity: normal range of motion, non-tender, normal inspection - SKIN Integumentary: normal color, normal turgor, warm/dry - NEUROLOGIC Neurologic: grossly normal, no motor/sensory deficits - PSYCHIATRIC Psych/Mental Status: normal mood/affect, normal thought content, normal thought process, oriented x 3 Progress - PLAN OF CARE/RESULTS Progress/Plan/Lab Results: Orders Category Date Time Status Admit - [facility] Routine AdmDCTranf 01/12/17 16:23 Ordered Activity - Bed Rest with BRP ORDERED Care 01/12/17 16:22 Active Call Admitting on Arrival AT ADMISSION Care 01/12/17 16:23 Active Resuscitation Status Routine Care 01/12/17 16:22 Ordered Saline Loc NOW Care 01/12/17 13:06 Active Vital Signs Order ROUTINE Care 01/12/17 16:22 Active Z-Document. for Tele Applied ORDERED Care 01/12/17 16:23 Completed NPO Diet 01/13/17 00:01 Completed CHEST-2 VIEWS [RAD] Stat Exams 01/12/17 11:[address] ABD/PELVIS/PULM ARTERIES [CT] Stat Exams 01/12/17 12:59 Completed AMYLASE [CHEM] Stat Lab 01/12/17 11:45 Completed CBC WITH ELECTRONIC DIFF [HEME] Stat Lab 01/12/17 11:45 Completed CK PROFILE [SP CHEM] Stat Lab 01/12/17 11:45 Completed CK PROFILE [SP CHEM] Stat Lab 01/12/17 14:16 Completed COMPREHENSIVE METABOLIC PANEL [CHEM] Stat Lab 01/12/17 11:45 Completed Ddimer [D-DIMER] [CHEM] Stat Lab 01/12/17 11:45 Completed Flu Swab [INFLUENZA SCREEN A/B] Stat Lab 01/12/17 10:55 Completed LIPASE [CHEM] Stat Lab 01/12/17 11:45 Completed TROPONIN T Stat Lab 01/12/17 11:45 Completed TROPONIN T Stat Lab 01/12/17 14:16 Completed 0.9% Sodium Chloride Inj [Ns] 1,000 ml Med 01/12/17 16:22 Discontinued IV KVO Aspirin Med 01/12/17 11:29 Discontinued 325 mg PO NOW ONE Lido/Lubin Alk/Al&mg Hydrox [G.i. Cocktail] Med 01/12/17 13:07 Discontinued 30 ml PO NOW ONE Morphine Med 01/12/17 16:22 Discontinued 2 mg IV Q2H PRN PRN Morphine Med 01/12/17 16:00 Discontinued 4 mg IV NOW ONE Nitroglycerin Med 01/12/17 13:07 Discontinued 0.5 inch TOP NOW ONE Ondansetron [Zofran] Med 01/12/17 13:07 Discontinued 4 mg IV NOW ONE Ondansetron [Zofran] Med 01/12/17 16:22 Discontinued 4 mg IV Q4H PRN PRN Telemetry [OM.EQ] Routine Oth 01/12/17 16:22 Active EKG [EKG] Stat Ther 01/12/17 11:34 Draft EKG [EKG] Stat Ther 01/12/17 13:49 Draft Venous U/S Bilateral Legs Stat Ther 01/12/17 13:11 Draft Transfer/Admit Order [TRANSFER] Routine Transfer 01/12/17 16:24 Completed Result Diagrams: 01/12/17 11:45 01/12/17 11:45 - REASSESSMENT Reassessment #1 Time Reassessed: 16:20 (Discussed c Dr. Villa (PCP) who would like to admit pt to floor c tele for r/o cp. He will write floor orders. ) - CT/MRI 1 CT Study: Angiogram (pulmonary) Impression: Normal CT Results: negative - Radiology 2 CT Study: Abdomen, Pelvis Impression: Normal CT Results: negative - radiology - CONSULTS/PCP/HOSPITALIST Notification #1 *Consult/PCP/Hospitalist*: Dr. Villa (PCP) Time Discussed: 16:21 (Admit floor c tele) Departure - Departure Date of Disposition Decision: 01/12/17 Time of Disposition Decision: 16:20 DIAGNOSIS: Chest pain Qualifiers: Chest pain type: unspecified Qualified Code(s): R07.9 - Chest pain, unspecified Disposition: ADMITTED INPATIENT 09 Certified Medical Emergency: Emergent Condition: Stable - Critical Care Note This patient required my direct & personal management of CC.: No Attestation - Physician/ SHONDA Attestation Patient care was provided by Advanced Practice Provider:: Yes Advanced Practice Provider:: Antonio Frausto Advanced Practice Provider documentation review:: The Mid-level provider documentation, treatment plan and medical decision making was reviewed by the physician who agrees with all treatment and medical decision making by the MLP. The physician spent face to face time with patient:: No Advanced Practice Provider documentation review:: Supervising physician onsite and consulted in the evaluation and care of this patient. The physician did not have a face to face encounter with the patient.
[2017-01-12] MEDS ORDERED: ASPIRIN PO ONE (11:29)
--- NOTE | 2017-01-12 11:37 | Diag Imaging Result Doc PS360 ---
EXAM: CHEST-2 VIEWS HISTORY: COUGH, TACHYCARDIA TECHNIQUE: PA and lateral chest COMMENT: There is a calcified granuloma in the right costophrenic angle anteriorly. There is no evidence of acute cardiac or pulmonary disease and compared to 10/10/2016 there has been no significant change. IMPRESSION: No acute disease. Electronically signed by Buddy Collier 01/12/2017 11:34 AM
[2017-01-12 11:58] LABS: MANUAL DIFF NEEDED? NO
[2017-01-12 12:05] LABS: BASO% 0.2 % (0.0-0.8); EOS# 0.09 X1000 (0.0-0.7); EOS% 1.4 % (0.0-10.0); HEMATOCRIT 37.7 % (37.0-47.0); HEMOGLOBIN 12.8 g/dL (12.0-16.0); LYMPH# 1.61 X1000 (1.2-3.4); LYMPH% 24.2 % (20.5-51.1); MCH 30.3 PG (27-31); MCV 89.1 FL (81-99); MONO# 0.47 X1000 (0.11-0.59); MONO% 7.1 % (1.7-9.3); MPV 9.9 FL (7.4-10.4); NEUT% 67.1 % (42.2-75.2); PLT 324 X1000 (130-400); RBC 4.23 XMIL (4.2-5.4)
[2017-01-12 12:48] LABS: ALBUMIN 3.8 g/dL (3.5-5.0); CALCIUM 8.1 mg/dL (8.8-10.2); POTASSIUM 3.1 mmol/L (3.5-5.1); TOTAL BILIRUBIN 0.4 mg/dL (0.20-1.00); TOTAL PROTEIN 6.7 g/dL (6.3-8.3)
[2017-01-12] MEDS ORDERED: G.I. COCKTAIL PO ONE (13:07)
[2017-01-12] MEDS ORDERED: NITROGLYCERIN TOP ONE (13:07)
[2017-01-12] MEDS ORDERED: ZOFRAN IV ONE (13:07)
[2017-01-12 13:21] LABS: AMYLASE 40 U/L (20-200); LIPASE 27 U/L (13-60)
--- NOTE | 2017-01-12 14:09 | Diag Imaging Result Doc PS360 ---
EXAM: ABD/PELVIS/PULM ARTERIES HISTORY: COUGH, CP, SOB X 24 HRS. ELEVATED D-DIMER TECHNIQUE: CT of the chest with intravenous contrast and 3-D MIPS, pulmonary arteriogram protocol with reduced dose applied. COMMENT: There are no filling defects in the pulmonary arteries. The aorta is normal in caliber. There is no evidence of dissection. There are no abnormal fluid collections. There is a calcified granuloma in the right lower lobe and calcified nodes in the subcarina. No evidence of acute pulmonary disease is present. There are mild spondylotic changes in the thoracic spine. ABDOMEN: The aorta is partially calcified but normal in caliber. The mesenteric and renal arteries are patent. There is no evidence of significant adenopathy. There is been previous cholecystectomy. The spleen and adrenal glands are not enlarged. The pancreas is normal in appearance. There is lobulation of both kidneys some of which may be due to previous cortical scarring. The liver is slightly hypodense suggesting fatty change. There is no evidence of bowel obstruction. Pelvis: There has been previous appendectomy. There is some diverticulosis in the sigmoid colon without evidence of active diverticulitis. There is no evidence of free fluid. There is been previous hysterectomy. The regional skeleton is intact. IMPRESSION: 1. No evidence of pulmonary emboli. 2. Hepatic steatosis. 3. Diverticulosis coli. Electronically signed by Buddy Collier 01/12/2017 2:06 PM
[2017-01-12] MEDS ORDERED: MORPHINE IV ONE (16:00)
[2017-01-12] MEDS ORDERED: NS 1,000 ML IV ONE (16:22)
[2017-01-12] MEDS ORDERED: MORPHINE IV PRN (16:22)
[2017-01-12] MEDS ORDERED: ZOFRAN IV PRN (16:22)
[2017-01-12] MEDS ORDERED: MOTRIN PO PRN (18:16)
[2017-01-12] MEDS ORDERED: DESYREL PO SCH (21:00)
[2017-01-13 04:34] VITALS: BP 95/45
[2017-01-13 06:58] LABS: HEMOGLOBIN A1C 6.4 % (4.8-6.0)
[2017-01-13] MEDS ORDERED: PRILOSEC PO SCH (07:00)
[2017-01-13] MEDS ORDERED: KLONOPIN PO SCH (09:00)
[2017-01-13] MEDS ORDERED: LOPRESSOR PO SCH (09:00)
[2017-01-13] MEDS ORDERED: NORVASC PO SCH (09:00)
[2017-01-13] MEDS ORDERED: COZAAR PO SCH (09:00)
--- NOTE | 2017-01-13 13:01 | HISTORY AND PHYSICAL ---
CHIEF COMPLAINTS: Chest pain, URI symptoms. HISTORY OF PRESENT ILLNESS: She is a 56-year-old, white female who was seen in our office in September for elevated blood pressure and tachycardia, sent home on beta blockers. She showed up in the ER with above symptoms. Patient was seen by PA who called me. All the workup was negative. Wants to be admitted for rule out ND even though previous stress test was negative in September. Pain is reproducible. No other symptoms. Basically admitted for observation. PAST MEDICAL HISTORY: Chronic anxiety, hypertension, glucose intolerance, metabolic syndrome, chronic low-back. PAST SURGICAL HISTORY: Bilateral cataract surgery, cholecystectomy, hysterectomy, back surgery, lipoma of the left leg excision. MEDICATIONS: Klonopin 0.5 mg once daily, losartan 100 daily, metformin 500 two tablets in the morning and one in the evening, Norvasc 10 mg daily, trazodone 50 at bedtime, Toprol 25 mg daily. ALLERGIES: Not known. SOCIAL HISTORY: with 3 kids, living in [place]. No smoking. No alcohol. Disabled. FAMILY HISTORY: Father of COPD at the age of 50. Mom of heart attack at the age of 58. Brother had a cerebrovascular accident. REVIEW OF SYSTEMS: HEENT: No headache. No vision problem. No earache. No sore throat, sniffles. Neck: No goiter. No lymphadenopathy. No bruit. Cardiopulmonary: Chest pain, atypical, reproducible. No shortness of breath, PND, orthopnea, palpitations. GI: No nausea, vomiting, abdominal pain. : No history of hesitancy, frequency. Musculoskeletal: No swelling of feet. No joint pain. Neurologic: No focal symptoms or weakness. PHYSICAL EXAMINATION: VITAL SIGNS: He is afebrile. Hemodynamics were stable. HEENT: Within normal limits. NECK: Supple. No lymphadenopathy. No goiter. CHEST: Bilateral air entry. HEART: Sounds are regular and tachycardic. Pain is reproducible. ABDOMEN: Belly is soft, nontender. Good bowel sounds. No signs of peritonitis. EXTREMITIES: No peripheral edema, cyanosis. NEUROLOGIC: No obvious neurological deficits. INVESTIGATIONS: CBC: White cell count 6.6, hematocrit 37, platelets 324,000. D-dimer 0.6. SMA 7: Potassium 3.12, creatinine 1.0. A1c 6.4. Elevated LFTs. Cardiac enzymes were normal. Amylase and lipase was normal. CT scan of the abdomen and pelvis: No evidence of PE, hepatic steatosis, diverticulosis coli. Chest x-ray: No acute disease. EKG; normal sinus, nothing acute. ASSESSMENT AND PLAN: 1. 56-year-old white female, admitted to the hospital with chest pain, reproducible musculoskeletal pain. Continue ibuprofen. Follow up on cardiac enzymes. If negative, will be discharged. Previous cardiac workup was negative in September 2016. 2. Fatty liver with elevated liver function tests. Continue on the diet. 3. Type 2 diabetes, on metformin. A1c is excellent. 4. Hypertension, on Norvasc, metoprolol, losartan. 5. Acid reflux disease, on Prilosec. 6. Chronic insomnia, on trazodone. 7. Anxiety/depression, on Klonopin as needed. 8. Continue on primary prevention. Control the blood pressure, A1c, LDL less than 100. Discussed with the patient plan of care and has been admitted to observation. cc: Josh Villa MD
--- NOTE | 2017-01-14 06:15 | EKG Report ---
Test Performed on : 01/12/2017 11:42:52 AM Test Reason : Left-sided chest pain Blood Pressure : / mmHG Vent. Rate : 103 BPM Atrial Rate : 103 BPM P-R Int : 164 ms QRS Dur : 078 ms QT Int : 382 ms P-R-T Axes : 034 060 091 degrees QTc Int : 500 ms Sinus tachycardia. Nonspecific T wave abnormality Abnormal ECG When compared with ECG of 01-SEP-2016 07:21, Vent. rate has increased BY 43 BPM Nonspecific T wave abnormality, worse in Anterior leads Unconfirmed Result
--- NOTE | 2017-01-14 06:18 | EKG Report ---
Test Performed on : 01/12/2017 2:06:41 PM Test Reason : CHEST PAIN Blood Pressure : / mmHG Vent. Rate : 079 BPM Atrial Rate : 079 BPM P-R Int : 180 ms QRS Dur : 082 ms QT Int : 396 ms P-R-T Axes : 046 050 077 degrees QTc Int : 454 ms Normal sinus rhythm. Normal ECG When compared with ECG of 12-JAN-2017 11:42, (Unconfirmed) Nonspecific T wave abnormality, improved in Anterior leads QT has shortened Unconfirmed Result
--- NOTE | 2017-01-14 15:34 | Extremity Venous Study ---
PROCEDURE NAME: Venous U/S Bilateral Legs - 01/12/2017 LOWER EXTREMITY VENOUS DUPLEX STUDY: REFERRING PHYSICIAN: Dr. Macias. READING PHYSICIAN: Tristan Holley MD. DEHYDRATOR TENDER: Trent. INDICATION: Leg pain and elevated D-dimer. FINDINGS: The deep and superficial veins of both lower extremities were imaged throughout their course. They are compressible, patent and without thrombus. INTERPRETATION: No evidence of deep or superficial venous thrombosis of either lower extremity. cc: MD Josh Flores MD
--- NOTE | 2017-04-04 08:07 | ED EKG INTERP ---
This chart was entered by Rachel Hicks Scribe, acting as scribe for Leah Macias MD. EKG Interpretation - EKG Time of EKG reading by physician:: 11:42 EKG Read and Signed by:: Leah aMcias EKG Interpretation (*Must complete 3 of following elements*): Abnormal Rate: 103 (nonspecific T wave abnormality) Rhythm: SINUS TACHYCARDIA - EKG # 2 Time of EKG reading by physician:: 14:06 EKG Read and Signed by:: Trent Yang EKG Interpretation (*Must complete 3 of following elements*): Normal Rate: 79 Rhythm: NSR Attestation - Physician/ SHONDA Attestation Patient care was provided by Advanced Practice Provider:: Yes Advanced Practice Provider documentation review:: The Mid-level provider documentation, treatment plan and medical decision making was reviewed by the physician who agrees with all treatment and medical decision making by the MLP. The physician spent face to face time with patient:: No Advanced Practice Provider documentation review:: Supervising physician onsite and consulted in the evaluation and care of this patient. The physician did not have a face to face encounter with the patient. This chart was documented by the indicated scribe, (Rachel Hicks Scribe) and accurately reflects the services I performed and decisions made by Gilberto jarquin Tom-Meka M., MD, as attested by the provider's signature.
== END 2017-01-13 12:24 | disposition home or self-care (01) ==
LOC: ED 10:38 → 3N 16:45 → INTOOBSV 16:45
PROVIDERS: ADMIT Internal Medicine; ATTEND Internal Medicine